=== PATIENT | female | born 1960 | race Caucasian/White ===

== ENCOUNTER 2018-09-11 17:18 | Emergency (ER) | payer MEDICAID, MEDICARE ==
[2018-09-11 17:52] VITALS: BP 128/45
--- NOTE | 2018-09-11 19:15 | UC ---
Lower Extremity/Ankle HPI - HPI Summary HPI Summary: 57 yo female slipped in tub complains of left foot pain no DODSON or neck pain no LOC - History of Current Complaint Chief Complaint: UCLowerExtremity Stated Complaint: LEFT FOOT INJURY Time Seen by Provider: 09/11/18 19:06 Hx Obtained From: Patient Hx Last Menstrual Period: age 41y Onset/Duration: Sudden Onset Severity Initially: Severe Severity Currently: Severe - with wt bearing Pain Intensity: 10 - declines analgesic Pain Scale Used: 0-10 Numeric Aggravating Factor(s): Standing, Ambulation Able to Bear Weight: Yes Legs: 1 - contused 2 - contused Feet (Multiple View): 1 - ecchymosis/tender 2 - ecchymosis/tender - Allergies/Home Medications Allergies/Adverse Reactions: Allergies Allergy/AdvReac Type Severity Reaction Status Date / Time cephalexin [From Keflex] Allergy Unknown Verified 09/11/18 17:41 Reaction Details diphenoxylate Allergy Altered Verified 09/11/18 17:41 Mental Status tramadol Allergy Unknown Verified 09/11/18 17:41 Reaction Details acyclovir Allergy Unknown Uncoded 09/11/18 17:41 Reaction Details Home Medications: Home Medications Cholesterol Med 1 tab DAILY 09/11/18 [History Confirmed 09/11/18] Water Pill 5 mg DAILY 09/11/18 [History Confirmed 09/11/18] PMH/Surg Hx/FS Hx/Imm Hx Previously Healthy: Yes Endocrine History: Diabetes, Dyslipidemia Cardiovascular History: Cardiac Disease, Hypertension - Surgical History Surgical History: Yes Surgery Procedure, Year, and Place: 1973 thyroid; b/l hands r/t MRSA, Complete hysterectomy 2010 - Family History Known Family History: Positive: Hypertension - Social History Alcohol Use: None Substance Use Type: None Smoking Status (MU): Heavy Every Day Tobacco Smoker Type: Cigarettes Amount Used/How Often: 1/2 PPD - Immunization History Most Recent Tetanus Shot: 11/23/11 Review of Systems All Other Systems Reviewed And Are Negative: Yes Constitutional: Positive: Negative Skin: Positive: Bruising Eyes: Positive: Negative ENT: Positive: Negative Respiratory: Positive: Negative Cardiovascular: Positive: Negative Gastrointestinal: Positive: Negative Genitourinary: Positive: Negative Motor: Positive: Negative Neurovascular: Positive: Negative Musculoskeletal: Positive: Arthralgia Neurological: Positive: Negative Psychological: Positive: Negative Physical Exam Triage Information Reviewed: Yes Appearance: Well-Appearing, No Pain Distress, Well-Nourished Vital Signs: Initial Vital Signs Temp 97.7 F 09/11/18 17:44 Pulse 69 09/11/18 17:44 Resp 26 09/11/18 17:44 BP 128/45 09/11/18 17:44 Pulse Ox 96 09/11/18 17:44 Vital Signs Reviewed: Yes Eyes: Positive: Conjunctiva Clear ENT: Positive: Hearing grossly normal. Negative: Nasal congestion, Nasal drainage, Muffled voice, Hoarse voice Neck: Positive: Supple, Nontender, No Lymphadenopathy Respiratory: Positive: Lungs clear, Normal breath sounds, No respiratory distress, No accessory muscle use Cardiovascular: Positive: RRR, No Murmur Musculoskeletal: Positive: Other: - see image Neurological: Positive: Alert Psychological Exam: Normal Skin Exam: Normal Lower Extremity Course/Dx - Differential Dx/Diagnosis Provider Diagnosis: Sprain of left great toe, Fracture of fifth toe, left, closed Discharge - Sign-Out/Discharge Documenting (check all that apply): Patient Departure All imaging exams completed and their final reports reviewed: No - Discharge Plan Condition: Stable Disposition: HOME Patient Education Materials: Toe Fracture (ED) Referrals: Carmine Aviles MD [Medical Doctor] - 1 Week Additional Instructions: rest elevate tyelnol post op shoe walker OFFICIAL XR reading pending - Billing Disposition and Condition Condition: STABLE Disposition: Home
--- NOTE | 2018-09-12 12:39 | ED ---
Progress - Progress Note Progress Note: Radiology read confirms the TOE fracture identified by provider. Course/Dx - Diagnoses Provider Diagnoses: Sprain of left great toe, Fracture of fifth toe, left, closed Discharge - Sign-Out/Discharge Documenting (check all that apply): Patient Departure All imaging exams completed and their final reports reviewed: Yes - Discharge Plan Condition: Stable Disposition: HOME Patient Education Materials: Toe Fracture (ED) Referrals: Carmine Aviles MD [Medical Doctor] - 1 Week Additional Instructions: rest elevate tyelnol post op shoe walker OFFICIAL XR reading pending - Billing Disposition and Condition Condition: STABLE Disposition: Home
== END 2018-09-11 20:00 | disposition home or self-care (01) ==
LOC: UCCORT 17:18
DX: S92.502A Displaced unspecified fracture of left lesser toe(s), initial encounter for closed fracture (principal); S93.502A Unspecified sprain of left great toe, initial encounter; S80.02XA Contusion of left knee, initial encounter; S80.01XA Contusion of right knee, initial encounter; E11.9 Type 2 diabetes mellitus without complications; I10 Essential (primary) hypertension; E78.5 Hyperlipidemia, unspecified; F17.210 Nicotine dependence, cigarettes, uncomplicated; Z88.1 Allergy status to other antibiotic agents; Z88.8 Allergy status to other drugs, medicaments and biological substances; Z88.5 Allergy status to narcotic agent; W18.40XA Slipping, tripping and stumbling without falling, unspecified, initial encounter; Y92.9 Unspecified place or not applicable
CPT/HCPCS: 99213; G0463